=== PATIENT | female | born 1945 | race Two or more races ===

== ENCOUNTER 2017-08-27 07:08 | Outpatient (CLI) | payer OTHER ==
[~2017-08-27 07:08] MED LIST: LEVSIN/SL0.125 MG PO; PROTONIX40 MG; SYNTHROID75 MCG; TYLENOL 325MG325 MG
== END 2017-08-27 07:18 | disposition home or self-care (01) ==
LOC: SONOGRAMA 07:08
DX: R10.84 Generalized abdominal pain (principal)

== ENCOUNTER 2017-09-02 10:35 | Outpatient (CLI) | payer OTHER | END 2017-09-02 10:40 | disposition home or self-care (01) | LOC: TOM 10:35 | DX: K52.89 Other specified noninfective gastroenteritis and colitis (principal); R10.32 Left lower quadrant pain; K50.918 Crohn's disease, unspecified, with other complication | CPT/HCPCS: 74177; Q9965 ==

== ENCOUNTER 2017-10-30 08:50 | Emergency (ER) | payer OTHER ==
[~2017-10-30] VITALS: Ht 152.4 cm; Wt 54.4 kg
== END 2017-10-30 12:51 | disposition home or self-care (01) ==
LOC: ER 08:50
DX: B34.9 Viral infection, unspecified (principal); J11.1 Influenza due to unidentified influenza virus with other respiratory manifestations

== ENCOUNTER 2017-11-27 07:06 | Outpatient (CLI) | payer OTHER | END 2017-11-27 07:08 | disposition home or self-care (01) | LOC: SONOGRAMA 07:06 | DX: R10.84 Generalized abdominal pain (principal); K80.20 Calculus of gallbladder without cholecystitis without obstruction ==

== ENCOUNTER 2019-05-09 13:19 | Emergency (ER) | payer OTHER ==
[~2019-05-09] VITALS: Ht 152.4 cm; Wt 53.1 kg
[2019-05-09] MEDS ORDERED: OMEPRAZOLE20 MG PO (13:54)
== END 2019-05-09 19:59 | disposition home or self-care (01) ==
LOC: ER 13:19
DX: K57.92 Diverticulitis of intestine, part unspecified, without perforation or abscess without bleeding (principal)

== ENCOUNTER 2023-06-17 08:31 | Outpatient (CLI) | payer OTHER ==
[~2023-06-17 08:31] MED LIST changes: +OMEPRAZOLE20 MG PO
== END 2023-06-17 08:38 | disposition home or self-care (01) ==
LOC: TOM 08:31
PROVIDERS: ATTEND Internal Medicine Gastroenterology
DX: K50.90 Crohn's disease, unspecified, without complications (principal); R70.0 Elevated erythrocyte sedimentation rate

== ENCOUNTER 2023-07-17 08:51 | Emergency (ER) | payer OTHER ==
[~2023-07-17] VITALS: Ht 149.9 cm; Wt 47.6 kg
[2023-07-17] MEDS ORDERED: TETRACAINE HCL 20 DR/ML DROPS OP STA (09:26)
[2023-07-17] MEDS ORDERED: GENTAMICIN SULFATE 3.5 GM TUBE OP STA (09:53)
[2023-07-17] MEDS ORDERED: GENTAMICIN SULF30 GM TOP (09:57)
== END 2023-07-17 10:08 | disposition home or self-care (01) ==
LOC: ER
DX: H57.11 Ocular pain, right eye (principal)

== ENCOUNTER 2023-11-24 14:53 | Emergency (ER) | payer OTHER ==
[~2023-11-24] VITALS: Ht 149.9 cm; Wt 47.2 kg
[~2023-11-24 14:53] MED LIST changes: +GENTAMICIN SULF30 GM TOP
[2023-11-24] MEDS ORDERED: FAMOTIDINE/PF 20 MG in 0.9 % SODIUM CHLORIDE 8 ML IV PUSH STA (16:27)
[2023-11-24] MEDS ORDERED: FAMOTIDINE/PF 20 MG/2 ML VIAL ONE (16:30)
[2023-11-24] MEDS ORDERED: METHYLPREDNISOLONE SOD SUCC 125 MG VIAL IV ONE (16:30)
[2023-11-24] MEDS ORDERED: METHYLPREDNISOLONE SOD SUCC 125 MG VIAL ONE (16:30)
[2023-11-24] MEDS ORDERED: BARIUM SULFATE 450 ML ORAL.SUSP PO ONE (16:32)
[2023-11-24 17:02] LABS: HEMATOCRIT 32.2 % (36.0-45.00); HEMOGLOBIN 10.6 g/dL (12.0-15.00); MEAN CELL VOLUME 86.6 fL (80.00-100.00); MEAN CORPUSCULAR HEMOGLOBIN 28.6 pg (27.00-32.0); PLATELET COUNT 214 K/uL (150-450); RED BLOOD COUNT 3.72 M/uL (4.00-6.00); RED CELL DISTRIBUTION WIDTH 14.2 % (11.5-14.5)
[2023-11-24 17:14] LABS: ALBUMIN 3.4 gm/dL (3.4-5.0); BILIRUBIN TOTAL 0.65 mg/dL (0.3-1.2); BILIRUBIN,CONJUGATED 0.16 mg/dL (0.0-0.2); BILIRUBIN,UNCONJUGATED 0.49 mg/dL (0.0-0.6); CALCIUM 8.9 mg/dL (8.5-10.1); CREATININE SERUM 0.77 mg/dL (0.55-1.02); GFR 72.69; GLOBULINA 3.8 G/DL (2.4-3.5); POTASSIUM 4.14 mEq/L (3.5-5.1); TOTAL PROTEIN 7.2 gm/dL (6.4-8.2)
[2023-11-24] MEDS ORDERED: LEVSIN/SL0.125 MG SL (22:15)
[2023-11-24] MEDS ORDERED: PEPCID AC20 MG PO (22:15)
[2023-11-24] MEDS ORDERED: METRONIDAZOLE/SODIUM CHLORIDE 500 MG/100 ML PIGGYBACK IV ONE ×2 (22:15)
[2023-11-24] MEDS ORDERED: METRONIDAZOLE500 MG PO (22:15)
[2023-11-24] MEDS ORDERED: CIPRO500 MG PO (22:15)
== END 2023-11-24 22:42 | disposition home or self-care (01) ==
LOC: ER 14:54
PROVIDERS: General Practice
DX: K57.92 Diverticulitis of intestine, part unspecified, without perforation or abscess without bleeding (principal); R10.9 Unspecified abdominal pain; E03.8 Other specified hypothyroidism
CPT/HCPCS: 36415; 74177; 96365; 99284; J3490 ×3; Q9965